=== PATIENT | female | born 1955 ===

== ENCOUNTER → 2017-06-01 | Outpatient (CLI) | payer MEDICARE | END | disposition disaster alternative care site (69) | LOC: GAMB 18:59 | DX: R53.1 Weakness (principal); R42 Dizziness and giddiness; R20.0 Anesthesia of skin; R29.810 Facial weakness; R47.81 Slurred speech; R11.2 Nausea with vomiting, unspecified; E11.9 Type 2 diabetes mellitus without complications; Z79.82 Long term (current) use of aspirin; Z79.899 Other long term (current) drug therapy | CPT/HCPCS: A0425; A0426; J2405 ==